=== PATIENT | female | born 1965 | race Two or more races ===

== ENCOUNTER 2024-10-20 06:26 | Outpatient (REF) | payer OTHER, SELFPAY ==
--- NOTE | ~2024-10-20 | XR_ITS ---
EXAMINATION: XR SHOULDER, LEFT CLINICAL INFORMATION: M25.511 - Pain in left shoulder COMPARISON: None available. TECHNIQUE: AP and Y-view of the left shoulder. FINDINGS: Radiopaque anchors in the humeral head. No acute cortical disruption or malalignment. No lytic or blastic lesions. XR/XR shoulder LT min 2V IMPRESSION: Status post rotator cuff tendon tear repair. No acute fracture or dislocation. Electronically signed by: Allen Haro MD 10/20/2024 10:03 AM EDT
== END 2024-10-20 06:27 | disposition home or self-care (01) ==
LOC: HO.HOSX 06:26
PROVIDERS: Visit Provider Orthopaedic Surgery
DX: M25.512 Pain in left shoulder (principal)
CPT/HCPCS: 73030

== ENCOUNTER 2024-10-20 09:38 | Outpatient (AMB) | payer OTHER, SELFPAY ==
--- NOTE | 2024-10-20 09:48 | A.OFFVIS_ITS ---
Vital Signs 10/20/24 09:50 Height 5 ft 1.5 in Weight 130 lb BMI 24.2 Intake Visit Reasons: Left shoulder pain and weakness Intake Note: Evita is a 58 year old right hand dominant female who presents with complaints of progressively worsening left shoulder pain and weakness. The patient states that she underwent left shoulder rotator cuff repair surgery several years ago. She re-injured her shoulder approximately 1 year ago while lifting a heavy object. Since that time she has had weakness when lifting her left hand above shoulder height. She has done physical therapy exercises which aggravated her pain. She has also tried Tylenol and anti-inflammatory medicines which gave her minimal relief. Allergies clindamycin Adverse Reaction (Unknown, Verified 10/20/24 10:04) Vomiting codeine Adverse Reaction (Unknown, Verified 10/20/24 10:04) Rash diclofenac Adverse Reaction (Unknown, Verified 10/20/24 10:04) Vomiting penicillin G Adverse Reaction (Unknown, Verified 10/20/24 10:04) Fever Sulfa (Sulfonamide Antibiotics) Adverse Reaction (Unknown, Verified 10/20/24 10:04) Unknown Medication List - Last Reconciled 10/20/24 by Estiven Souza MD lorazepam 1 mg PO [facility] Surgical History (Updated 10/15/24 @ 14:21 by NATHANAEL Chavez) Status post arthroscopy of left shoulder Physical Exam Vital Signs: BMI result Body Mass Index 24.2 Const Other: Well-nourished well-developed very friendly female awake alert and oriented x3 in no acute distress Extrem Other: Left shoulder examination shows slightly decreased range of motion when compared to her right shoulder, 4+ out of 5 strength with supraspinatus testing, positive impingement signs, no instability Results Reviewed Results Reviewed: X-rays of the patient's left shoulder show moderate to severe acromioclavicular joint narrowing, a type 2 acromion, 1 suture anchor within the proximal humerus with no signs of loosening Assessment & Plan Assessment & Plan (1) Rotator cuff insufficiency of left shoulder: Code(s): M25.312 - Other instability, left shoulder Category: Medical Plan Ms. Avila presents with recurrent left shoulder pain and weakness possibly due to a recurrent rotator cuff tear. Thus, I will send the patient for an MRI of her left shoulder for further evaluation. I will see her back once the MRI is completed to discuss the findings and treatment options. She will continue with her [id number] exercises in the meantime to prevent stiffness. I spent 20 minutes in reviewing the patient's records and imaging studies, seeing the patient and documenting in the medical record. Orders: Orders MR shoulder LT wo con Today M25.312 - Other instability, left shoulder Coding Level of Care Code New Pt Level 3 (77229) Complex EM visit Add On G2211 Diagnoses Rotator cuff insufficiency of left shoulder M25.312
[2024-10-20 09:50] VITALS: BMI 24.2
--- OUTSIDE RECORDS SUMMARY | 2024-10-20 10:25 | XMS_ITS | Clinical Summary ---
Author Organization [facility] Address [address] [place], [place] [id number] Care Team Providers Care Division Field Inspector Name Role Phone Domonique Estrada Primary Care Provider Allergies Active Allergy Reactions Criticality Noted Date Comments Clindamycin 06/12/2019 Codeine 06/12/2019 Diclofenac 06/12/2019 Medications Medication Sig Dispensed Refills Start Date End Date Status amitriptyline (ELAVIL) tablet 25 mg Take 25 mg by mouth every night at bedtime. 0 06/01/2019 Active LORazepam (ATIVAN) 1 MG tablet Take 1 mg by mouth daily as needed. for anxiety 0 06/01/2019 Active Magnesium Oxide 400 (241.3 Mg) MG TABS tablet Take 400 mg by mouth 2 (two) times a day. 0 Active vitamin D3 (VITAMIN D3) 10 MCG (400 UNIT) tablet Take 400 Units by mouth daily. 0 Active BLACK COHOSH HOT FLASH RELIEF PO Take by mouth. 0 Activ e HYDROmorphone (Dilaudid) 2 MG tablet Take 1 to 2 tabs every 4 hours as needed for pain 50 tablet 0 06/14/2020 Active cyclobenzaprine (FLEXERIL) 10 MG tablet TAKE 1 TABLET BY MOUTH 3 TIMES A DAY NEEDED SPASMS 0 07/17/2020 Active acetaminophen (TYLENOL) 500 MG tablet Take 1-2 tabs every 8 hours as needed for pain 100 tablet 2 08/31/2020 Active Family History Medical History Relation Name Comments Hypertension Brother Clotting disorder Father Heart disease Father Cancer Mother Heart disease Sister Relation Name Status Comments Brother Father Mother Sister Social History Tobacco Use Types Packs/Day Years Used Date Smoking Tobacco: Never Assessed Sex and Gender Information Value Date Recorded Sex Assigned at Not on file Gender Identity Not on file Sexual Orientation Not on file Job Start Date Occupation Industry Not on file Not on file Not on file Last Filed Vital Signs Vital Sign Reading Time Taken Comments Blood Pressure - - Pulse - - Temperature - - Respiratory Rate - - Oxygen Saturation - - Inhaled Oxygen Concentration - - Weight 63.5 kg (140 lb) 06/12/2019 9:44 AM EST Height 157.5 cm (5' 2 ) 06/12/2019 9:44 AM EST Body Mass Index 25.61 06/12/2019 9:44 AM EST Plan of Treatment Health Maintenance Due Date Last Done Comments Hepatitis B Vaccines (1 of 3 - 3-dose series) 1965 Hepatitis C Screening 1965 COVID-19 Vaccine (#1) 05/17/1966 Depression Screening 1977 BMI Counseling 11/15/1983 Preventative Health Evaluation 11/15/1983 DTap / Tdap / Td (1 - Tdap) 1984 Cervical Cancer Screening (P ap Smear) 1986 Colon Cancer Screening (Colonoscopy) 2010 Breast Cancer Screening (Mammogram) 11/15/2015 Shingrix-Zoster Vaccine (1 of 2) 11/15/2015 Influenza Vaccine (Season Ended) 2024 Pneumococcal Vaccine Aged Out No long er eligible based on patient's age to complete this topic RSV Ped < 20 months Aged Out No longe r eligible based on patient's age to complete this topic Care Teams Division Field Inspector Relationship Specialty Start Date End Date Estrada, [address] [place] [address] PCP - General Family Medicine 04/27/19
== END 2024-10-20 10:04 | disposition home or self-care (01) ==
PROVIDERS: Visit Provider Orthopaedic Surgery
DX: M25.312 Other instability, left shoulder (principal)
CPT/HCPCS: 99203; G2211

== ENCOUNTER → 2024-10-20 09:41 | Outpatient (BNV) | payer OTHER, SELFPAY | PROVIDERS: Visit Provider Radiology Diagnostic Radiology | DX: M25.512 Pain in left shoulder (principal) | CPT/HCPCS: 73030 ==